=== PATIENT | male | born 2000 | race Caucasian/White ===

== ENCOUNTER 2020-01-01 15:52 | Emergency (ER) | payer OTHER ==
[2020-01-01] MEDS ORDERED: Bacitracin 1 PK ONE (17:17)
[2020-01-01] MEDS ORDERED: Morphine 4 MG/ML VIAL ONE (17:17)
[2020-01-01] MEDS ORDERED: Adacel (T-DAP) 0.5 ML SYRINGE ONE (17:51)
[2020-01-01 17:58] LABS: Bilirubin Negative (Negative); Blood, Urine Negative (Negative); Clarity Clear (Clear); Glucose, Urine (Dipstick) Normal (Negative); Leukocyte Negative Leu/uL (Negative); Nitrite Negative (Negative); Protein, Urine (Dipstick) Negative (Neg-Trace); Urobilinogen Normal mg/dL (Less than 2)
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
== END 2020-01-01 18:28 | disposition home or self-care (01) ==
LOC: ERS 15:52
DX: S31.21XA Laceration without foreign body of penis, initial encounter (principal); F32.9 Major depressive disorder, single episode, unspecified; Z87.891 Personal history of nicotine dependence; Z23 Encounter for immunization; W22.8XXA Striking against or struck by other objects, initial encounter; Y93.51 Activity, roller skating (inline) and skateboarding
CPT/HCPCS: 12001; 81003; 90471; 90715; 96365; 96372; J0690; J2270